=== PATIENT | female | born 1975 | race African-American/Black ===

== ENCOUNTER 2016-10-06 12:27 | Emergency (ER) | payer OTHER ==
[~2016-10-06] VITALS: Ht 144.8 cm; Wt 68.0 kg
[~2016-10-06 12:27] MED LIST: DOXEPIN HCL PO
[2016-10-06] MEDS ORDERED: KETOROLAC 30MG/ML VIAL IV ONE (13:15)
[2016-10-06] MEDS ORDERED: SODIUM CHLORIDE 0.9% 1,000 ML IV ONE (13:15)
[2016-10-06] MEDS ORDERED: ACETAMINOPHEN 325MG TABLET PO ONE (13:15)
[2016-10-06 13:23] LABS: CLARITY URINE CLOUDY (CLEAR); COLOR URINE YELLOW (YELLOW); GLUCOSE URINE NEGATIVE (NEGATIVE); KETONES URINE TRACE (NEGATIVE); LEUKOCYTE ESTERASE URINE 1+ (NEGATIVE); NITRITE URINE NEGATIVE (NEGATIVE); OCCULT BLOOD URINE NEGATIVE (NEGATIVE); PROTEIN URINE NEGATIVE (NEGATIVE); SPECIFIC GRAVITY URINE 1.026 (1.005-1.030)
[2016-10-06 13:26] LABS: BASOPHILS % 0.9 % (0.0-2.0); EOSINOPHILS % 1.3 % (0.0-5.0); HEMATOCRIT. 28.7 % (36.0-48.0); HEMOGLOBIN. 8.8 g/dL (12.0-16.0); MEAN CORPUSCULAR HEMOGLOBIN 22.1 pg (28.0-32.0); MEAN CORPUSCULAR VOLUME 72.3 fL (81.0-99.0); MEAN PLATELET VOLUME 7.8 fl (7.4-10.4); MONOCYTES % 6.8 % (2.0-8.0); PLATELET 369 x1000/uL (130-400); RED BLOOD CELL COUNT 3.97 mill/uL (4.2-5.4); RED CELL DISTRIBUTION WIDTH 18.4 % (11.6-14.6)
[2016-10-06 13:31] LABS: INR 1.1; PROTHROMBIN TIME 11.3 sec
[2016-10-06 13:36] LABS: CARBON DIOXIDE 27 mEq/L (21-32); CHLORIDE 108 mEq/L (98-107); ETHANOL BLOOD < 10 mg/dL
[2016-10-06 13:47] LABS: *AMPHETAMINES SCREEN URINE NEGATIVE (NEGATIVE); *BARBITURATES SCREEN URINE NEGATIVE (NEGATIVE); *BENZODIAZEPINES SCREEN URINE NEGATIVE (NEGATIVE); *COCAINE SCREEN URINE NEGATIVE (NEGATIVE); CANNABINOID URINE SCREEN NEGATIVE (NEGATIVE); METHADONE URINE SCREEN NEGATIVE (NEGATIVE); OPIATES URINE SCREEN NEGATIVE (NEGATIVE); PHENCYCLIDINE URINE SCREEN NEGATIVE (NEGATIVE)
[2016-10-06 14:47] LABS: HCG SCREEN NEGATIVE
[2016-10-06 16:00] VITALS: BP 119/75
== END 2016-10-06 16:00 | disposition home or self-care (01) ==
LOC: ER 13:54
DX: N39.0 Urinary tract infection, site not specified (principal); Z88.5 Allergy status to narcotic agent; Z88.6 Allergy status to analgesic agent
CPT/HCPCS: 36415; 74176; 80053; 80305; 81001; 83690; 84703; 85025; 85610; 96361; 96374; 99285; G0482; J1885; J7030; Z7610

== ENCOUNTER 2016-11-30 04:56 | Emergency (ER) | payer OTHER ==
[~2016-11-30] VITALS: Ht 144.8 cm; Wt 73.0 kg
[2016-11-30] MEDS ORDERED: KETOROLAC 60MG/2ML VIAL IM ONE (06:30)
[2016-11-30] MEDS ORDERED: ONDANSETRON 4MG ODT PO ONE (06:30)
[2016-11-30] MEDS ORDERED: MAGNESIUM/ALUMINUM HYDROXIDE/SIMETHICONE 30ML UDC PO ONE (06:30)
[2016-11-30] MEDS ORDERED: MORPHINE SULFATE 10 MG/ML CPJ IM ONE (06:30)
[2016-11-30 06:34] LABS: GLUCOSE URINE NEGATIVE (NEGATIVE); KETONES URINE NEGATIVE (NEGATIVE); LEUKOCYTE ESTERASE URINE NEGATIVE (NEGATIVE); NITRITE URINE NEGATIVE (NEGATIVE); OCCULT BLOOD URINE NEGATIVE (NEGATIVE); PROTEIN URINE NEGATIVE (NEGATIVE)
[2016-11-30 06:44] LABS: CLARITY URINE CLEAR (CLEAR); COLOR URINE YELLOW (YELLOW)
[2016-11-30 08:46] VITALS: BP 122/78
== END 2016-11-30 08:49 | disposition home or self-care (01) ==
LOC: ER 04:56
DX: M54.40 Lumbago with sciatica, unspecified side (principal); G89.29 Other chronic pain; M41.9 Scoliosis, unspecified; R03.0 Elevated blood-pressure reading, without diagnosis of hypertension; Z90.49 Acquired absence of other specified parts of digestive tract
CPT/HCPCS: 81003; 81025; 96372; 99284; J1885; J2270; Q0162

== ENCOUNTER 2016-12-06 08:33 | Emergency (ER) | payer OTHER ==
[~2016-12-06] VITALS: Ht 144.8 cm; Wt 73.0 kg
[2016-12-06] MEDS ORDERED: KETOROLAC 60MG/2ML VIAL IM ONE (13:45)
[2016-12-06] MEDS ORDERED: METHOCARBAMOL 500MG TABLET PO ONE (13:45)
[2016-12-06 14:17] VITALS: BP 125/75
== END 2016-12-06 14:52 | disposition home or self-care (01) ==
LOC: ER 11:37
DX: M54.40 Lumbago with sciatica, unspecified side (principal); Z90.49 Acquired absence of other specified parts of digestive tract
CPT/HCPCS: 96372; 99283; J1885; Z7610

== ENCOUNTER 2017-02-01 03:11 | Emergency (ER) | payer OTHER ==
[~2017-02-01] VITALS: Ht 172.7 cm; Wt 91.0 kg
[2017-02-01] MEDS ORDERED: KETOROLAC 60MG/2ML VIAL IM ONE (06:15)
[2017-02-01 07:35] VITALS: BP 118/78
== END 2017-02-01 07:49 | disposition home or self-care (01) ==
LOC: ER 03:32
DX: M54.5 Low back pain (principal); G89.29 Other chronic pain
CPT/HCPCS: 96372; 99283; J1885; Z7610

== ENCOUNTER 2018-02-03 11:22 | Emergency (ER) | payer MEDICAID, OTHER ==
[~2018-02-03] VITALS: Ht 144.8 cm; Wt 68.0 kg
[2018-02-03] MEDS ORDERED: ONDANSETRON HCL 4MG/2ML INJ IV STA (12:11)
[2018-02-03] MEDS ORDERED: SODIUM CHLORIDE 0.9% 1,000 ML IV ONE (12:11)
[2018-02-03] MEDS ORDERED: MORPHINE SULFATE 4 MG/ML CPJ (NOT FOR IM USE) IV STA (12:11)
[2018-02-03 12:53] LABS: COLOR URINE YELLOW (YELLOW); KETONES URINE NEGATIVE (NEGATIVE); LEUKOCYTE ESTERASE URINE NEGATIVE (NEGATIVE); NITRITE URINE NEGATIVE (NEGATIVE); OCCULT BLOOD URINE NEGATIVE (NEGATIVE); PROTEIN URINE NEGATIVE (NEGATIVE); SPECIFIC GRAVITY URINE 1.011 (1.005-1.030); UROBILINOGEN URINE 0.2 E.U./dL (0.2-1.0)
[2018-02-03 12:54] LABS: BASOPHILS % 0.6 % (0.0-2.0); CLARITY URINE CLEAR (CLEAR); EOSINOPHILS % 0.8 % (0.0-5.0); HEMATOCRIT. 31.1 % (36.0-48.0); HEMOGLOBIN. 9.8 g/dL (12.0-16.0); LYMPHOCYTES % 29.9 % (20.0-50.0); MEAN CORPUSCULAR HEMOGLOBIN 23.8 pg (28.0-32.0); MEAN CORPUSCULAR VOLUME 75.9 fL (81.0-99.0); MEAN PLATELET VOLUME 7.9 fl (7.4-10.4); MONOCYTES % 6.9 % (2.0-8.0); NEUTROPHILS % 61.8 % (40.0-76.0); PLATELET 383 x1000/uL (130-400); RED CELL DISTRIBUTION WIDTH 17.9 % (11.6-14.6)
[2018-02-03 13:00] LABS: CHLORIDE 108 mEq/L (98-107)
[2018-02-03] MEDS ORDERED: IOHEXOL-300 100 ML BOTTLE ONE (15:24)
[2018-02-03] MEDS ORDERED: DOXYCYCLINE HYCLATE 100MG CAPSULE PO NR (16:00)
[2018-02-03] MEDS ORDERED: HYDROCODONE/ACETAMINOPHEN 5/325MG TABLET PO NR (16:00)
[2018-02-03] MEDS: CEFTRIAXONE 1 G PREMIX 50 ML IV NR ×2 (16:22→19:34)
[2018-02-03 17:00] VITALS: BP 128/95
== END 2018-02-03 17:00 | disposition home or self-care (01) ==
LOC: ER 13:08
DX: R10.9 Unspecified abdominal pain (principal); R50.9 Fever, unspecified; K76.0 Fatty (change of) liver, not elsewhere classified; M41.86 Other forms of scoliosis, lumbar region; Z90.49 Acquired absence of other specified parts of digestive tract; Z98.51 Tubal ligation status
CPT/HCPCS: 36415; 74177; 80053; 81003; 83690; 85025; 96361; 96365; 96375; 99285; J0696; J2270; J2405; J7030; Q9967

== ENCOUNTER 2018-03-05 15:42 | Emergency (ER) | payer MEDICAID ==
[~2018-03-05] VITALS: Ht 144.8 cm; Wt 70.0 kg
[2018-03-05] MEDS ORDERED: HYDROCODONE/ACETAMINOPHEN 5/325MG TABLET PO ONE (17:30)
[2018-03-05] MEDS ORDERED: TETANUS, DIPHTHERIA, PERTUSSIS VAC/PF 0.5ML (>7YR OLD) IM ONE (17:30)
[2018-03-05 17:45] VITALS: BP 127/82
== END 2018-03-05 17:50 | disposition home or self-care (01) ==
LOC: ER 16:51
DX: S51.851A Open bite of right forearm, initial encounter (principal); S50.11XA Contusion of right forearm, initial encounter; Z90.49 Acquired absence of other specified parts of digestive tract; Z98.51 Tubal ligation status; W54.0XXA Bitten by dog, initial encounter; Y93.89 Activity, other specified; Y92.488 Other paved roadways as the place of occurrence of the external cause
CPT/HCPCS: 90471; 90715; 99283

== ENCOUNTER 2018-05-04 14:17 | Emergency (ER) | payer MEDICAID ==
[~2018-05-04] VITALS: Ht 144.8 cm; Wt 73.0 kg
[2018-05-04 15:03] LABS: CLARITY URINE CLOUDY (CLEAR); COLOR URINE YELLOW (YELLOW); KETONES URINE TRACE (NEGATIVE); LEUKOCYTE ESTERASE URINE 1+ (NEGATIVE); NITRITE URINE NEGATIVE (NEGATIVE); OCCULT BLOOD URINE 1+ (NEGATIVE); PROTEIN URINE NEGATIVE (NEGATIVE); SPECIFIC GRAVITY URINE 1.025 (1.005-1.030); UROBILINOGEN URINE 0.2 E.U./dL (0.2-1.0)
[2018-05-04] MEDS ORDERED: MORPHINE SULFATE 4 MG/ML CPJ (NOT FOR IM USE) IV STA (17:45)
[2018-05-04] MEDS ORDERED: FAMOTIDINE 20MG/2ML VIAL IV STA (17:45)
[2018-05-04] MEDS ORDERED: ONDANSETRON HCL 4MG/2ML INJ IV STA (17:45)
[2018-05-04] MEDS ORDERED: KETOROLAC 30MG/ML VIAL IV STA (17:45)
[2018-05-04] MEDS ORDERED: SODIUM CHLORIDE 0.9% 1,000 ML IV ONE (17:45)
[2018-05-04 17:53] LABS: *AMPHETAMINES SCREEN URINE NEGATIVE (NEGATIVE); CANNABINOID URINE SCREEN NEGATIVE (NEGATIVE); PHENCYCLIDINE URINE SCREEN NEGATIVE (NEGATIVE)
[2018-05-04 17:54] LABS: *BENZODIAZEPINES SCREEN URINE NEGATIVE (NEGATIVE); *COCAINE SCREEN URINE NEGATIVE (NEGATIVE); METHADONE URINE SCREEN NEGATIVE (NEGATIVE); OPIATES URINE SCREEN NEGATIVE (NEGATIVE)
[2018-05-04 18:04] LABS: *BARBITURATES SCREEN URINE PRESUMTIVE POSITIVE (NEGATIVE)
[2018-05-04] MEDS ORDERED: CEFTRIAXONE 1 G PREMIX 50 ML IV ONE (18:15)
[2018-05-04 19:25] LABS: BASOPHILS % 0.7 % (0.0-2.0); EOSINOPHILS % 0.8 % (0.0-5.0); HEMATOCRIT. 33.8 % (36.0-48.0); HEMOGLOBIN. 10.3 g/dL (12.0-16.0); LYMPHOCYTES % 23.4 % (20.0-50.0); MEAN CORPUSCULAR HEMOGLOBIN 22.2 pg (28.0-32.0); MEAN CORPUSCULAR VOLUME 72.8 fL (81.0-99.0); MEAN PLATELET VOLUME 7.7 fl (7.4-10.4); MONOCYTES % 8.9 % (2.0-8.0); NEUTROPHILS % 66.2 % (40.0-76.0); PLATELET 398 x1000/uL (130-400); RED BLOOD CELL COUNT 4.65 mill/uL (4.2-5.4); RED CELL DISTRIBUTION WIDTH 17.5 % (11.6-14.6)
[2018-05-04 19:26] LABS: CHLORIDE 107 mEq/L (98-107)
[2018-05-04 19:27] LABS: INR 1.1; PROTHROMBIN TIME 10.8 sec (9.1-11.1)
[2018-05-04] MEDS ORDERED: HYDROCODONE/ACETAMINOPHEN 5/325MG TABLET PO ONE (19:45)
[2018-05-04] MEDS ORDERED: CEFTRIAXONE 1,000 MG in DEXTROSE 5% WATER 50 ML IV SCH (20:00)
[2018-05-04 21:22] VITALS: BP 119/58
== END 2018-05-04 21:24 | disposition home or self-care (01) ==
LOC: ER 14:17
DX: N39.0 Urinary tract infection, site not specified (principal); I10 Essential (primary) hypertension; R94.5 Abnormal results of liver function studies; D64.9 Anemia, unspecified; R73.9 Hyperglycemia, unspecified; E46 Unspecified protein-calorie malnutrition; M41.9 Scoliosis, unspecified; Z68.34 Body mass index [BMI] 34.0-34.9, adult; Z90.49 Acquired absence of other specified parts of digestive tract
CPT/HCPCS: 36415; 74022; 76770; 80053; 80305; 81003; 81025; 83690; 85025; 85610; 87086; 96365; 96366; 96375; 99284; J0696; J1885; J2270; J2405; J3490; J7030; J7060

== ENCOUNTER 2018-05-08 09:27 | Emergency (ER) | payer MEDICAID ==
[~2018-05-08] VITALS: Ht 162.6 cm; Wt 73.0 kg
[2018-05-08] MEDS ORDERED: SODIUM CHLORIDE 0.9% 1,000 ML IV ONE (10:28)
[2018-05-08] MEDS ORDERED: ACTIVATED CHARCOAL 50 G/240 ML TUBE PO ONE (10:30)
[2018-05-08 10:57] LABS: BG BASE EXCESS -2.7 mmol/L (-2.0-2.0); BG CARBOXYHEMOGLOBIN 0.4 % (0.5-1.5); BG DEOXYHEMOGLOBIN 3.8 % (0.0-5.0); BG FRACTION INSPIRED OXYGEN 21; BG HCO3 ACT 21.8 mmol/L (22.0-26.0); BG METHEMOGLOBIN 0.3 % (0.0-1.5); BG OXYGEN SATURATION 96.2 % (92.0-98.5); BG OXYHEMOGLOBIN 95.5 % (94.0-97.0); BG PCO2 36.9 mmHg (35.0-45.0); BG SAMPLE SITE RIGHT BRACHIAL; BG VENT MODE ROOM AIR
[2018-05-08 11:36] LABS: BASOPHILS % 1.2 % (0.0-2.0); EOSINOPHILS % 1.5 % (0.0-5.0); HEMATOCRIT. 36.5 % (36.0-48.0); HEMOGLOBIN. 11.2 g/dL (12.0-16.0); LYMPHOCYTES % 29.6 % (20.0-50.0); MEAN CORPUSCULAR HEMOGLOBIN 22.5 pg (28.0-32.0); MEAN CORPUSCULAR VOLUME 72.9 fL (81.0-99.0); MEAN PLATELET VOLUME 8.2 fl (7.4-10.4); MONOCYTES % 8.2 % (2.0-8.0); NEUTROPHILS % 59.5 % (40.0-76.0); PLATELET 343 x1000/uL (130-400)
[2018-05-08 11:38] LABS: CHLORIDE 109 mEq/L (98-107)
[2018-05-08 11:42] LABS: CLARITY URINE CLOUDY (CLEAR); COLOR URINE ORANGE (YELLOW); KETONES URINE TRACE (NEGATIVE); LEUKOCYTE ESTERASE URINE 1+ (NEGATIVE); NITRITE URINE POSITIVE (NEGATIVE); OCCULT BLOOD URINE NEGATIVE (NEGATIVE); PROTEIN URINE NEGATIVE (NEGATIVE); SPECIFIC GRAVITY URINE 1.022 (1.005-1.030)
[2018-05-08 11:49] LABS: ETHANOL BLOOD < 10 mg/dL
[2018-05-08] MEDS ORDERED: IBUPROFEN 600MG TABLET PO ONE (12:00)
[2018-05-08 12:14] LABS: HCG SCREEN NEGATIVE
[2018-05-08 12:23] LABS: *AMPHETAMINES SCREEN URINE NEGATIVE (NEGATIVE); *COCAINE SCREEN URINE NEGATIVE (NEGATIVE)
[2018-05-08 12:24] LABS: CANNABINOID URINE SCREEN NEGATIVE (NEGATIVE); METHADONE URINE SCREEN NEGATIVE (NEGATIVE); PHENCYCLIDINE URINE SCREEN NEGATIVE (NEGATIVE)
[2018-05-08] MEDS ORDERED: HYDROCODONE/ACETAMINOPHEN 5/325MG TABLET PO ONE (12:30)
[2018-05-08] MEDS ORDERED: LORAZEPAM 2MG/ML CPJ IV ONE (12:30)
[2018-05-08 12:37] LABS: *BARBITURATES SCREEN URINE PRESUMTIVE POSITIVE (NEGATIVE); *BENZODIAZEPINES SCREEN URINE PRESUMTIVE POSITIVE (NEGATIVE); OPIATES URINE SCREEN PRESUMTIVE POSITIVE (NEGATIVE)
[2018-05-08] MEDS: SULFAMETHOXAZOLE/TRIMETHOPRIM 800/160MG TABLET PO NR ×3 (12:38→13:32)
[2018-05-08] MEDS ORDERED: MORPHINE SULFATE 4 MG/ML CPJ (NOT FOR IM USE) IV ONE (15:30)
[2018-05-08] MEDS ORDERED: CEFTRIAXONE SODIUM 1 G/VIAL IM ONE (17:30)
[2018-05-08] MEDS ORDERED: KETOROLAC 30MG/ML VIAL IV ONE (17:30)
[2018-05-08 18:31] VITALS: BP 149/85
== END 2018-05-08 18:30 | disposition home or self-care (01) ==
LOC: ER 09:33
DX: T42.6X1A Poisoning by other antiepileptic and sedative-hypnotic drugs, accidental (unintentional), initial encounter (principal); F32.9 Major depressive disorder, single episode, unspecified; Y92.89 Other specified places as the place of occurrence of the external cause; Z87.440 Personal history of urinary (tract) infections; Z90.49 Acquired absence of other specified parts of digestive tract
CPT/HCPCS: 36415; 36600; 70450; 71045; 80053; 80305; 80307; 80329; 81003; 81025; 82375; 82805; 84703; 85025; 87186; 93005; 96372; 96374; 96375; 99285; J0696; J1885; J2060; J2270; J7030

== ENCOUNTER 2019-02-14 17:52 | Emergency (ER) | payer MEDICAID, OTHER ==
[~2019-02-14] VITALS: Ht 144.8 cm; Wt 80.0 kg
[~2019-02-14 17:52] MED LIST changes: +AMOX-424 MT
[2019-02-14] MEDS ORDERED: DIPHENHYDRAMINE 25MG CAPSULE PO ONE (20:30)
[2019-02-14] MEDS ORDERED: METOCLOPRAMIDE HCL 10MG TABLET PO ONE (20:30)
[2019-02-14] MEDS ORDERED: KETOROLAC 30MG/ML VIAL IM ONE (20:30)
[2019-02-14 21:59] VITALS: BP 137/86
== END 2019-02-14 22:38 | disposition home or self-care (01) ==
LOC: ER 17:52
DX: S09.90XA Unspecified injury of head, initial encounter (principal); M54.5 Low back pain; G43.909 Migraine, unspecified, not intractable, without status migrainosus; G44.89 Other headache syndrome; Z79.899 Other long term (current) drug therapy; F32.9 Major depressive disorder, single episode, unspecified; Z87.440 Personal history of urinary (tract) infections; Z90.49 Acquired absence of other specified parts of digestive tract; Y08.89XA Assault by other specified means, initial encounter; Y93.89 Activity, other specified; Y92.89 Other specified places as the place of occurrence of the external cause; Y99.8 Other external cause status
CPT/HCPCS: 72070; 72100; 81025; 96372; 99283; J1885; J8597; Q0163

== ENCOUNTER 2019-04-14 09:59 | Emergency (ER) | payer OTHER ==
[~2019-04-14] VITALS: Ht 144.8 cm; Wt 81.0 kg
[2019-04-14] MEDS ORDERED: HYDROCODONE/ACETAMINOPHEN 5/325MG TABLET PO STA (11:24)
[2019-04-14 12:46] LABS: CLARITY URINE TURBID (CLEAR); COLOR URINE YELLOW (YELLOW); KETONES URINE NEGATIVE (NEGATIVE); LEUKOCYTE ESTERASE URINE TRACE (NEGATIVE); NITRITE URINE NEGATIVE (NEGATIVE); OCCULT BLOOD URINE NEGATIVE (NEGATIVE); PH URINE 6.5 (4.5-8.0); PROTEIN URINE TRACE (NEGATIVE); SPECIFIC GRAVITY URINE 1.022 (1.005-1.030); UROBILINOGEN URINE 0.2 E.U./dL (0.2-1.0)
[2019-04-14 13:09] VITALS: BP 123/86
== END 2019-04-14 13:12 | disposition home or self-care (01) ==
LOC: ER 09:59
DX: K62.9 Disease of anus and rectum, unspecified (principal); K64.9 Unspecified hemorrhoids; Z87.440 Personal history of urinary (tract) infections; Z90.49 Acquired absence of other specified parts of digestive tract; Z79.899 Other long term (current) drug therapy
CPT/HCPCS: 81003; 81025; 99283

== ENCOUNTER 2019-06-19 14:30 | Emergency (ER) | payer OTHER ==
[~2019-06-19] VITALS: Ht 144.8 cm; Wt 73.0 kg
[2019-06-19] MEDS ORDERED: IBUPROFEN 600MG TABLET PO ONE (16:00)
[2019-06-19 16:03] VITALS: BP 132/59
[2019-06-19] MEDS ORDERED: VISCOUS LIDOCAINE 2% 15 ML UDC PO STA (16:06)
[2019-06-19] MEDS ORDERED: MAGNESIUM/ALUMINUM HYDROXIDE/SIMETHICONE 30ML UDC PO STA (16:06)
== END 2019-06-19 17:19 | disposition home or self-care (01) ==
LOC: ER 14:30
DX: J02.9 Acute pharyngitis, unspecified (principal); F32.9 Major depressive disorder, single episode, unspecified; Z90.49 Acquired absence of other specified parts of digestive tract
CPT/HCPCS: 87070; 87430; 99284